=== PATIENT | female | born 1955 | race Caucasian/White ===

== ENCOUNTER 2020-11-04 22:40 | Inpatient (IN) ==
[2020-11-05] MEDS ORDERED: Ondansetron 4 MG/2 ML VIAL IVP PRN ×3 (02:38→19:54)
[2020-11-05] MEDS ORDERED: *HR* Promethazine 25 MG/ML VIAL IM PRN ×2 (02:38→19:54)
[2020-11-05] MEDS ORDERED: Ketorolac 30 MG/ML VIAL IVP PRN (02:38)
[2020-11-05] MEDS ORDERED: Naloxone 0.4 MG/ML INJ IVP PRN ×2 (02:38→19:54)
[2020-11-05] MEDS: 0.9 % Sodium Chloride 1,000 ML IVC SCH ×2 (03:05→10:53)
[2020-11-05 06:00] LABS: Basophils # 0.1 K/mcL (0.0-0.2); Basophils % 0.8 %; Eosinophils # 0.2 K/mcL (0.0-0.6); Eosinophils % 2.2 %; Hematocrit 35.1 % (35.3-44.9); Hemoglobin 11.4 g/dL (11.5-15.4); Immature Granulocytes % 0.4 % (0-4); Lymphocytes # 2.2 K/mcL (0.6-4.6); Lymphocytes % 27.7 %; Mean Corpuscular HGB Conc 32.5 g/dL (31.6-35.5); Mean Corpuscular Hemoglobin 32.4 pg (28.0-33.3); Mean Corpuscular Volume 99.7 fL (83.0-100.0); Mean Platelet Volume 9.8 fL (9.4-12.4); Monocytes # 0.7 K/mcL (0.0-1.3); Monocytes % 9.2 %; Neutrophils # 4.7 K/mcL (1.6-8.9); Platelet Count 210 K/mcL (140-400); Red Blood Count 3.52 M/mcL (3.82-4.97); Red Cell Distribution Width 13.7 % (11.5-14.5); Segmented Neutrophils % 59.7 %; White Blood Count 7.8 K/mcL (4.3-11.1)
[2020-11-05 06:27] LABS: Calcium 8.1 mg/dL (8.6-10.3); Potassium 3.9 mEq/L (3.5-5.1)
[2020-11-05 07:53] LABS: INR 3.3; Prothrombin Time 36.5 Seconds (9.4-12.1)
[2020-11-05] MEDS ORDERED: D5% in Water 1,000 ML IVC PRN ×2 (07:54→19:54)
[2020-11-05] MEDS ORDERED: Dextrose Gel 15 GM/37.5 ML TUBE PO PRN ×4 (07:54→19:54)
[2020-11-05] MEDS ORDERED: *HR* Dextrose 50 % in Water (Vial) 50 ML VIAL IVP PRN ×2 (07:54→19:54)
[2020-11-05] MEDS ORDERED: *HR* Amiodarone 200 MG TABLET PO SCH (09:00)
[2020-11-05] MEDS ORDERED: Nicotine 21 MG PATCH.TD24 TD SCH (12:45)
[2020-11-05] MEDS ORDERED: Saliva Stimulant 44.3ml BOTTLE PO PRN ×2 (15:39→19:54)
[2020-11-05] MEDS ORDERED: Albuterol 2.5 MG/3 ML NEBULIZER IH PRN (17:40)
[2020-11-05] MEDS ORDERED: *HR* HYDROmorphone PF 0.5 MG/0.5 ML SYRINGE IVP PRN (17:40)
[2020-11-05] MEDS ORDERED: Ipratropium Neb 0.5 MG NEBULIZER IH PRN (17:40)
[2020-11-05] MEDS ORDERED: *HR* FentaNYL (PF) 100 MCG/2 ML VIAL IVP PRN (17:40)
[2020-11-05] MEDS ORDERED: Acetaminophen IV 1,000 MG/100 ML BAG IVPB ONE (18:03)
[2020-11-05] MEDS ORDERED: *HR* Propofol 200 MG/20 ML VIAL IVP ONE (18:06)
[2020-11-05] MEDS ORDERED: Clindamycin 900 MG/50 ML 900 MG/50 ML IV.SOLN IVPB ONE (18:06)
[2020-11-05] MEDS ORDERED: EPHEDrine 50 MG/ML VIAL ONE (18:12)
[2020-11-05] MEDS ORDERED: Ondansetron 4 MG/2 ML VIAL ONE (18:45)
[2020-11-05] MEDS ORDERED: Lidocaine -MPF 2% 2 ML VIAL ONE (18:45)
[2020-11-05] MEDS ORDERED: *HR* FentaNYL (PF) 100 MCG/2 ML VIAL ONE (18:46)
[2020-11-06] MEDS: Clindamycin 900 MG/50 ML 900 MG/50 ML IV.SOLN IVPB SCH ×2 (02:48→12:07)
[2020-11-06 05:20] LABS: Hematocrit 31.2 % (35.3-44.9); Hemoglobin 10.2 g/dL (11.5-15.4); Mean Corpuscular HGB Conc 32.7 g/dL (31.6-35.5); Mean Corpuscular Hemoglobin 32.3 pg (28.0-33.3); Mean Corpuscular Volume 98.7 fL (83.0-100.0); Platelet Count 194 K/mcL (140-400); Red Blood Count 3.16 M/mcL (3.82-4.97); Red Cell Distribution Width 13.4 % (11.5-14.5); White Blood Count 7.9 K/mcL (4.3-11.1)
[2020-11-06 05:24] LABS: Prothrombin Time 33.6 Seconds (9.4-12.1)
[2020-11-06 05:38] LABS: Calcium 8.2 mg/dL (8.6-10.3); Magnesium 1.9 mg/dL (1.6-2.6); Phosphorous 4.8 mg/dL (2.7-4.5); Potassium 4.6 mEq/L (3.5-5.1)
[2020-11-06] MEDS ORDERED: Iron Sucrose Complex 400 MG in 0.9 % Sodium Chloride 250 ML IVPB ONE (07:53)
[2020-11-06] MEDS: Multivit/Ca/Min/Fe/FA 1 TAB TABLET PO SCH (08:34)
[2020-11-06] MEDS: Nicotine 21 MG PATCH.TD24 TD SCH (08:34)
[2020-11-06] MEDS: *HR* Amiodarone 200 MG TABLET PO SCH (08:34)
[2020-11-06] MEDS ORDERED: Topiramate 25 MG CAP.SPRINK PO SCH (13:30)
[2020-11-06] MEDS ORDERED: Nicotine 2 MG GUM BC PRN (14:34)
[2020-11-06] MEDS ORDERED: Ringers Solution, Lactated 500 ML IVC SCH (14:45)
[2020-11-06] MEDS ORDERED: Warfarin perPT PO PRN (18:00)
[2020-11-06] MEDS ORDERED: *HR* Warfarin 4 MG TABLET PO SCH (18:00)
[2020-11-06] MEDS: Ipratropium/Albuterol Neb 3 ML IH SCH ×2 (20:28→21:28)
[2020-11-06] MEDS: Sennosides/Docusate Sodium TABLET PO SCH (21:23)
[2020-11-06] MEDS: Topiramate 25 MG TABLET PO SCH (21:24)
[2020-11-06] MEDS: Budesonide/Formoterol 160/4.5 1 PUFF INH IH SCH (21:28)
[2020-11-07 01:12] LABS: Hematocrit 25.1 % (35.3-44.9); Mean Corpuscular HGB Conc 31.9 g/dL (31.6-35.5); Mean Corpuscular Hemoglobin 31.6 pg (28.0-33.3); Mean Corpuscular Volume 99.2 fL (83.0-100.0); Mean Platelet Volume 9.9 fL (9.4-12.4); Platelet Count 174 K/mcL (140-400); Red Blood Count 2.53 M/mcL (3.82-4.97); Red Cell Distribution Width 13.6 % (11.5-14.5); White Blood Count 8.5 K/mcL (4.3-11.1)
[2020-11-07 01:20] LABS: INR 2.7; Prothrombin Time 30.5 Seconds (9.4-12.1)
[2020-11-07 01:57] LABS: Calcium 7.7 mg/dL (8.6-10.3); Magnesium 1.7 mg/dL (1.6-2.6); Phosphorous 3.9 mg/dL (2.7-4.5); Potassium 3.9 mEq/L (3.5-5.1)
[2020-11-07] MEDS: Ipratropium/Albuterol Neb 3 ML IH SCH ×2 (04:33→10:27)
[2020-11-07] MEDS: Multivit/Ca/Min/Fe/FA 1 TAB TABLET PO SCH (07:44)
[2020-11-07] MEDS: *HR* Amiodarone 200 MG TABLET PO SCH (07:44)
[2020-11-07] MEDS: Sennosides/Docusate Sodium TABLET PO SCH (07:44)
[2020-11-07] MEDS: Topiramate 25 MG TABLET PO SCH (07:44)
[2020-11-07] MEDS: Nicotine 21 MG PATCH.TD24 TD SCH (07:44)
[2020-11-07] MEDS ORDERED: Calcium Gluconate 1gm/50mL 1 GM/50 ML BAG IVPB SCH (08:00)
[2020-11-07] MEDS ORDERED: polyethylene glycoL 3350 17 GM POWD.PACK PO SCH (09:00)
[2020-11-07] MEDS: Budesonide/Formoterol 160/4.5 1 PUFF INH IH SCH (10:27)
[2020-11-07 12:05] LABS: Hematocrit 27.7 % (35.3-44.9); Hemoglobin 8.9 g/dL (11.5-15.4)
[2020-11-07 14:47] VITALS: BP 105/72; PULSE 108; TEMP 98.9; O2SAT 93
[2020-11-07] MEDS ORDERED: *HR* OxyCODONE/APAP 10/325 TABLET PO ONE (15:14)
[2020-11-07] MEDS ORDERED: *HR* Warfarin 4 MG TABLET PO ONE (18:00)
== END 2020-11-07 16:13 | disposition home or self-care (01) | DRG 481 ==
LOC: 3NENU → SUATTDRO 11-05 01:09
PROVIDERS: ADMIT Internal Medicine; ATTEND Internal Medicine